=== PATIENT | female | born 1975 | race Caucasian/White ===

== ENCOUNTER → 2018-08-31 | Outpatient (CLI) | payer BC ==
--- NOTE | 2018-08-31 17:29 | KCIC ---
Bilateral digital screening mammograms: Reason for examination: Routine screening. Comparison is made to previous studies dated 07/24/2014 and 10/17/2009. Interpretation was made with the benefit of CAD. The skin and nipples show no abnormalities. No abnormal axillary lymph nodes are seen. The breast parenchyma shows scattered fibroglandular density. (Breast density: Category B.) There are no dominant masses, suspicious calcifications or architectural distortions. Impression: No evidence of malignancy. Recommend routine screening. BI-RADS Category 1: Negative. "Our facility is accredited by the [employer] Mammography Program." This patient's information has been entered into a reminder system for the patient to be notified with the results of her examination and a target date for the next mammogram. Electronically signed by: Annetta Matias MD (08/31/2018 5:25 PM) [id number]
== END | disposition home or self-care (01) ==
LOC: KCIC MAMMO 15:04
PROVIDERS: ATTEND Obstetrics & Gynecology
DX: Z12.31 Encounter for screening mammogram for malignant neoplasm of breast (principal)
CPT/HCPCS: 77067

== ENCOUNTER → 2020-09-04 | Outpatient (CLI) | payer BC ==
--- NOTE | 2020-09-04 11:30 | KCIC ---
Exam Date: 09/04/2020 8:37 AM XR BILATERAL HIP (WITH OR WITHOUT PELVIS) 2 VIEWS_RIGHT Indication: Reason: Chronic ankle and hip pain. / Spl. Instructions: / History: FINDINGS/ IMPRESSION: No acute fracture or dislocation. Alignment and joint spaces are maintained. The soft tissues are w ithin normal limits. Electronically signed by: Geoffrey Parnell MD (09/04/2020 11:28 AM) [id number]
--- NOTE | 2020-09-04 11:32 | KCIC ---
Exam Date: 09/04/2020 8:37 AM XR EXAM OF ANKLE_LEFT 3V Indication: Reason: Chronic ankle and hip pain. / Spl. Instructions: / History: FINDINGS/ IMPRESSION: Ankle mortise is intact. There is diffuse soft tissue swelling, most prominent laterally. Mild degene rative changes are noted. Alignment is maintained. Mild calcaneal enthesopathy is present. No acute f racture or dislocation.Postoperative changes are noted involving the first metatarsal and first toe. Electronically signed by: Geoffrey Parnell MD (09/04/2020 11:29 AM) [id number]
== END ==
LOC: KCIC 08:30
PROVIDERS: ATTEND Physician Assistant Medical
DX: M77.32 Calcaneal spur, left foot (principal); M25.551 Pain in right hip; M25.572 Pain in left ankle and joints of left foot; M79.89 Other specified soft tissue disorders
CPT/HCPCS: 73502; 73610

== ENCOUNTER → 2020-12-21 | Outpatient (CLI) | payer BC ==
--- NOTE | 2020-12-21 10:03 | KCIC ---
PA and lateral chest. HISTORY: Short of breath, R06.02, wheezing 06.2 PA and lateral views were taken of the chest. Lungs are free of infiltrates. Heart is normal in size. Scarring along the left heart border or an apical fat pad. IMPRESSION: 1. No acute infiltrates. Electronically signed by: Vladislav Bynum MD (12/21/2020 10:01 AM) [id number]
== END ==
LOC: KCIC 09:39
PROVIDERS: ATTEND Physician Assistant
DX: R06.02 Shortness of breath (principal); R06.2 Wheezing
CPT/HCPCS: 71046